=== PATIENT | male | born 1985 | race African-American/Black ===

== ENCOUNTER 2020-08-07 15:54 | Emergency (ER) | payer BC ==
[~2020-08-07] VITALS: Ht 175.3 cm; Wt 85.0 kg
[2020-08-07 16:00] VITALS: BP 117/80
[2020-08-07] MEDS ORDERED: ACETAMINOPHEN 325MG TABLET PO ONE (16:45)
== END 2020-08-07 16:45 | disposition home or self-care (01) ==
LOC: ER 15:54
DX: H66.91 Otitis media, unspecified, right ear (principal); I10 Essential (primary) hypertension
CPT/HCPCS: 99282

== ENCOUNTER → 2022-10-09 | Outpatient (CLI) | payer BC ==
[2022-10-09 10:10] LABS: CHLORIDE 104 mEq/L (98-107)
[2022-10-09 10:19] LABS: HDL CHOLESTEROL 69 mg/dL (40-59); LDL CHOLESTEROL 116 mg/dL (5-100)
[2022-10-12 13:10] LABS: MICROALBUMIN RANDOM URINE 6.7 ug/mL (Not Estab.)
[2022-10-13 04:08] LABS: *CREATININE RANDOM URINE 255.5 mg/dL (Not Estab.)
== END | disposition home or self-care (01) ==
LOC: LAB 09:27
PROVIDERS: ATTEND Family Medicine
DX: Z00.00 Encounter for general adult medical examination without abnormal findings (principal)
CPT/HCPCS: 36415; 80053; 80061; 82043; 82570; 83036

== ENCOUNTER → 2023-05-13 | Outpatient (CLI) | payer BC ==
[2023-05-13 10:15] LABS: BASOPHILS % 1.2 % (0.0-2.0); CHLORIDE 103 mEq/L (98-107); EOSINOPHILS % 2.1 % (0.0-5.0); HEMATOCRIT. 42.9 % (42.0-52.0); HEMOGLOBIN. 14.2 g/dL (14.0-18.0); INDEX HEMOLYSI 1 (1-3); INDEX ICTERIC 1 (1-4); INDEX LIPEMIC 1 (1-3); MEAN CORPUSCULAR HEMOGLOBIN 27.7 pg (28.0-32.0); MEAN CORPUSCULAR VOLUME 83.9 fL (80.0-94.0); MEAN PLATELET VOLUME 8.3 fl (7.4-10.4); MONOCYTES % 9.8 % (2.0-8.0); NEUTROPHILS % 41.9 % (40.0-76.0); PLATELET 232 x1000/uL (130-400); POTASSIUM 3.9 mEq/L (3.5-5.1); RED BLOOD CELL COUNT 5.12 mill/uL (4.7-6.1); RED CELL DISTRIBUTION WIDTH 14.1 % (11.6-14.6); SODIUM 136 mEq/L (136-145); WHITE BLOOD COUNT 2.3 x1000/uL (4.5-11.0)
[2023-05-13 10:17] LABS: CALCIUM 9.1 mg/dL (8.5-10.1)
[2023-05-13 10:32] LABS: ALANINE AMINOTRANSFERASE 36 IU/L (13-61); ALBUMIN 4.2 g/dL (3.4-5.0); ASPARTATE AMINOTRANSFERASE 18 IU/L (15-37); BILIRUBIN TOTAL 0.5 mg/dL (0.1-1.0); CARBON DIOXIDE 29 mEq/L (21-32); CHOLESTEROL 192 mg/dL (<200); CREATININE 1.1 mg/dL (0.6-1.3); GLUCOSE 98 mg/dL (70-105); HDL CHOLESTEROL 68 mg/dL (40-59); IRON 131 ug/dL (50-175); LDL CHOLESTEROL 113 mg/dL (5-100); PHOSPHORUS 3.2 mg/dL (2.5-4.9); PROTEIN TOTAL 7.6 g/dL (6.0-8.3); TOTAL IRON BINDING CAPACITY 304 ug/dL (250-450); TRIGLYCERIDE 93 mg/dL (0-150); UREA NITROGEN BLOOD 15 mg/dL (7-21)
[2023-05-13 11:24] LABS: ERYTHROCYTE SEDIMENTATION RATE 2 mm/hr (0-15)
[2023-05-13 15:21] LABS: C REACTIVE PROTEIN QUANT 0.5 mg/L (0.0-3.0)
[2023-05-13 16:49] LABS: HEPATITIS B SURFACE ANTIGEN NEGATIVE
[2023-05-13 17:15] LABS: HEPATITIS C VIR.AB 0.12 INDEXVAL (0.00-0.80)
[2023-05-13 17:16] LABS: HEPATITIS B CORE AB IGM NEGATIVE
[2023-05-13 17:17] LABS: HEPATITIS A AB IGM NEGATIVE (NEGATIVE)
[2023-05-14 09:07] LABS: *T3 UPTAKE 26 % (24-39); HELICOBACTER PYLORI AB IGG 0.3 (0.00-0.79)
[2023-05-16 13:07] LABS: THYROXINE BINDING GLOBULIN 16 ug/mL (13-39)
== END | disposition home or self-care (01) ==
LOC: LAB 09:30
PROVIDERS: ATTEND Internal Medicine
DX: Z13.29 Encounter for screening for other suspected endocrine disorder (principal); R73.09 Other abnormal glucose; R70.0 Elevated erythrocyte sedimentation rate; E58 Dietary calcium deficiency; R94.4 Abnormal results of kidney function studies; R79.9 Abnormal finding of blood chemistry, unspecified; R94.6 Abnormal results of thyroid function studies; E61.2 Magnesium deficiency; B96.81 Helicobacter pylori [H. pylori] as the cause of diseases classified elsewhere
CPT/HCPCS: 36415; 80053; 80061; 82626; 83036; 83540; 83550; 83735; 84100; 84442; 84443; 84479; 85025; 85651; 86140; 86677; 86705; 86709; 86803; 87340

== ENCOUNTER → 2023-08-05 | Outpatient (CLI) | payer BC | END | disposition home or self-care (01) | LOC: MRI 07:51 | PROVIDERS: ATTEND Internal Medicine | DX: M41.25 Other idiopathic scoliosis, thoracolumbar region (principal); M19.071 Primary osteoarthritis, right ankle and foot; M21.071 Valgus deformity, not elsewhere classified, right ankle; M72.2 Plantar fascial fibromatosis; M21.611 Bunion of right foot | CPT/HCPCS: 72146; 73630; 73718 ==

== ENCOUNTER → 2023-11-17 | Outpatient (CLI) | payer BC | END | disposition home or self-care (01) | LOC: RAD 14:31 | PROVIDERS: ATTEND Podiatrist Foot & Ankle Surgery | DX: M20.11 Hallux valgus (acquired), right foot (principal); M20.12 Hallux valgus (acquired), left foot; M19.071 Primary osteoarthritis, right ankle and foot; M79.671 Pain in right foot; M79.672 Pain in left foot | CPT/HCPCS: 73630; 73650 ==

== ENCOUNTER → 2023-12-28 | Outpatient (CLI) | payer BC ==
[2023-12-28 11:15] LABS: BASOPHILS % 0.9 % (0.0-2.0); EOSINOPHILS % 1.3 % (0.0-5.0); HEMATOCRIT. 40.1 % (42.0-52.0); HEMOGLOBIN. 13.4 g/dL (14.0-18.0); LYMPHOCYTES % 31.3 % (20.0-50.0); MEAN CORPUSCULAR HEMOGLOBIN 28.4 pg (28.0-32.0); MEAN CORPUSCULAR HGB CONC 33.5 g/dL (31.0-37.0); MEAN CORPUSCULAR VOLUME 84.8 fL (80.0-94.0); MONOCYTES % 9.7 % (2.0-8.0); NEUTROPHILS % 56.8 % (40.0-76.0); PLATELET 227 x1000/uL (130-400); RED BLOOD CELL COUNT 4.72 mill/uL (4.7-6.1); RED CELL DISTRIBUTION WIDTH 14.1 % (11.6-14.6)
[2023-12-28 12:00] LABS: ALANINE AMINOTRANSFERASE 24 IU/L (10-49); ALBUMIN 4.3 g/dL (3.2-4.8); ASPARTATE AMINOTRANSFERASE 21 IU/L (<34); BILIRUBIN TOTAL 0.4 mg/dL (0.1-1.0); CARBON DIOXIDE 30 mEq/L (21-32); CHLORIDE 105 mEq/L (98-107); GLUCOSE 88 mg/dL (70-105); PROTEIN TOTAL 6.7 g/dL (6.0-8.3); SODIUM 139 mEq/L (136-145); UREA NITROGEN BLOOD 11 mg/dL (9-23); URIC ACID 4.3 mg/dL (3.7-9.2)
== END | disposition home or self-care (01) ==
LOC: LAB 10:46
PROVIDERS: ATTEND Podiatrist Foot & Ankle Surgery
DX: M1A.0710 Idiopathic chronic gout, right ankle and foot, without tophus (tophi) (principal)
CPT/HCPCS: 36415; 80053; 84550; 85025

== ENCOUNTER → 2024-04-24 | Outpatient (CLI) | payer BC | END | disposition home or self-care (01) | LOC: MRI 09:05 | PROVIDERS: ATTEND Internal Medicine | DX: G43.909 Migraine, unspecified, not intractable, without status migrainosus (principal) | CPT/HCPCS: 70544; 70551; 70553 ==

== ENCOUNTER → 2024-09-10 | Outpatient (CLI) | payer BC ==
[2024-09-10 10:13] LABS: CLARITY URINE CLEAR (CLEAR); COLOR URINE YELLOW (YELLOW); GLUCOSE URINE NEGATIVE (NEGATIVE); KETONES URINE NEGATIVE (NEGATIVE); LEUKOCYTE ESTERASE URINE NEGATIVE (NEGATIVE); NITRITE URINE NEGATIVE (NEGATIVE); OCCULT BLOOD URINE NEGATIVE (NEGATIVE); PH URINE 5.5 (4.5-8.0); PROTEIN URINE NEGATIVE (NEGATIVE); SPECIFIC GRAVITY URINE 1.019 (1.005-1.030); UROBILINOGEN URINE 0.2 E.U./dL (0.2-1.0)
[2024-09-10 10:22] LABS: CHLORIDE 104 mEq/L (98-107); SODIUM 140 mEq/L (136-145)
[2024-09-10 10:23] LABS: CALCIUM 10.2 mg/dL (8.7-10.4); CARBON DIOXIDE 28 mEq/L (21-32)
[2024-09-10 10:28] LABS: CREATININE 1.1 mg/dL (0.6-1.3); GLUCOSE 98 mg/dL (70-105); IRON 107 ug/dL (65-175); URIC ACID 6.8 mg/dL (3.7-9.2)
[2024-09-10 10:29] LABS: LDL CHOLESTEROL 106 mg/dL (5-100); TRIGLYCERIDE 122 mg/dL (0-150); UREA NITROGEN BLOOD 14 mg/dL (9-23)
[2024-09-10 10:30] LABS: ALANINE AMINOTRANSFERASE 38 IU/L (10-49); ALBUMIN 4.5 g/dL (3.2-4.8); ASPARTATE AMINOTRANSFERASE 28 IU/L (<34); BASOPHILS % 1.1 % (0.0-2.0); BILIRUBIN DIRECT 0.1 mg/dL (<=3.0); BILIRUBIN TOTAL 0.5 mg/dL (0.1-1.0); C REACTIVE PROTEIN QUANT 0.8 mg/L (0.0-3.0); CHOLESTEROL 184 mg/dL (<200); EOSINOPHILS % 2.5 % (0.0-5.0); HDL CHOLESTEROL 52 mg/dL (>55); HEMATOCRIT. 42.9 % (42.0-52.0); HEMOGLOBIN. 14.2 g/dL (14.0-18.0); LYMPHOCYTES % 40.8 % (20.0-50.0); MEAN CORPUSCULAR HEMOGLOBIN 28.3 pg (28.0-32.0); MEAN CORPUSCULAR HGB CONC 33.1 g/dL (31.0-37.0); MEAN CORPUSCULAR VOLUME 85.4 fL (80.0-94.0); MEAN PLATELET VOLUME 8.3 fl (7.4-10.4); MONOCYTES % 8.9 % (2.0-8.0); NEUTROPHILS % 46.7 % (40.0-76.0); PHOSPHORUS 3.7 mg/dL (2.5-4.9); PLATELET 241 x1000/uL (130-400); RED BLOOD CELL COUNT 5.03 mill/uL (4.7-6.1); RED CELL DISTRIBUTION WIDTH 14.2 % (11.6-14.6); WHITE BLOOD COUNT 2.6 x1000/uL (4.5-11.0)
[2024-09-10 10:31] LABS: TOTAL IRON BINDING CAPACITY 294 ug/dl (250-425)
[2024-09-10 10:32] LABS: THYROID STIMULATING HORMONE 1.48 uIU/mL (0.55-4.78)
[2024-09-10 11:24] LABS: HEPATITIS B SURFACE AB 60.2 mIU/mL (<10)
[2024-09-10 11:57] LABS: HEPATITIS B CORE AB IGM NEGATIVE (Negative)
[2024-09-10 12:15] LABS: ERYTHROCYTE SEDIMENTATION RATE 3 mm/hr (0-15)
[2024-09-11 08:09] LABS: *T3 UPTAKE 27 % (24-39); FOLICLE STIMULATING HORMONE 6.4 mIU/mL (1.5-12.4); HEPATITIS A ANTIBODY TOTAL Negative (Negative); LUTEINIZING HORMONE 6.2 mIU/mL (1.7-8.6); PROGESTERONE 0.3 ng/mL (0.0-0.5); PROSTATE SPECIFIC AG TOTAL 0.9 ng/mL (0.0-4.0); TRANSFERRIN 236 mg/dL (177-329); VITAMIN D 25-OH 29.6 ng/mL (30.0-100.0)
== END | disposition home or self-care (01) ==
LOC: LAB 09:29
PROVIDERS: ATTEND Internal Medicine
DX: Z00.00 Encounter for general adult medical examination without abnormal findings (principal)
CPT/HCPCS: 36415; 80053; 80061; 80076; 81003; 82024; 82306; 82533; 82670; 83001; 83002; 83036; 83540; 83550; 84100; 84144; 84153; 84403; 84443; 84466; 84479; 84550; 85025; 85651; 86140; 86705; 86706; 86708

== ENCOUNTER → 2025-04-12 | Outpatient (CLI) | payer BC | END | disposition home or self-care (01) | LOC: RAD 07:22 | PROVIDERS: ATTEND Podiatrist Foot & Ankle Surgery | DX: M19.071 Primary osteoarthritis, right ankle and foot (principal); M20.11 Hallux valgus (acquired), right foot; M25.871 Other specified joint disorders, right ankle and foot; M79.671 Pain in right foot | CPT/HCPCS: 73630 ==

== ENCOUNTER → 2025-07-02 | Outpatient (CLI) | payer BC ==
[2025-07-02 09:41] LABS: CLARITY URINE CLEAR (CLEAR); COLOR URINE YELLOW (YELLOW); GLUCOSE URINE NEGATIVE (NEGATIVE); KETONES URINE TRACE (NEGATIVE); LEUKOCYTE ESTERASE URINE NEGATIVE (NEGATIVE); NITRITE URINE NEGATIVE (NEGATIVE); OCCULT BLOOD URINE NEGATIVE (NEGATIVE); PH URINE 6.5 (4.5-8.0); PROTEIN URINE NEGATIVE (NEGATIVE); SPECIFIC GRAVITY URINE 1.021 (1.005-1.030); UROBILINOGEN URINE 0.2 E.U./dL (0.2-1.0)
[2025-07-02 09:47] LABS: BASOPHILS % 1.0 % (0.0-2.0); EOSINOPHILS % 2.3 % (0.0-5.0); HEMATOCRIT. 40.9 % (42.0-52.0); HEMOGLOBIN. 13.4 g/dL (14.0-18.0); LYMPHOCYTES % 35.5 % (20.0-50.0); MEAN PLATELET VOLUME 7.9 fl (7.4-10.4); MONOCYTES % 8.2 % (2.0-8.0); NEUTROPHILS % 53.0 % (40.0-76.0); PLATELET 256 x1000/uL (130-400); RED BLOOD CELL COUNT 4.93 mill/uL (4.7-6.1); RED CELL DISTRIBUTION WIDTH 14.4 % (11.6-14.6)
[2025-07-02 09:49] LABS: INR 0.9
[2025-07-02 10:06] LABS: CREATININE 1.1 mg/dL (0.6-1.3); TRIGLYCERIDE 125 mg/dL (0-150); UREA NITROGEN BLOOD 10 mg/dL (9-23)
[2025-07-02 10:07] LABS: LDL CHOLESTEROL 119 mg/dL (5-100)
[2025-07-02 10:08] LABS: ASPARTATE AMINOTRANSFERASE 23 IU/L (<34); BILIRUBIN TOTAL 0.4 mg/dL (0.1-1.0); PHOSPHORUS 3.5 mg/dL (2.5-4.9); PROTEIN TOTAL 7.2 g/dL (6.0-8.3)
[2025-07-02 10:12] LABS: T4 FREE 1.21 ng/dL (0.89-1.76)
[2025-07-02 11:01] LABS: ERYTHROCYTE SEDIMENTATION RATE 2 mm/hr (0-15)
[2025-07-03 05:09] LABS: PROSTATE SPECIFIC AG TOTAL 0.9 ng/mL (0.0-4.0); VITAMIN D 25-OH 33.3 ng/mL (30.0-100.0)
== END | disposition home or self-care (01) ==
LOC: RAD 08:57
DX: Z01.818 Encounter for other preprocedural examination (principal); Z00.00 Encounter for general adult medical examination without abnormal findings; R94.31 Abnormal electrocardiogram [ECG] [EKG]
CPT/HCPCS: 36415; 71045; 80053; 80061; 81003; 82306; 83036; 83735; 84100; 84153; 84403; 84439; 84550; 85025; 85651; 93005

== ENCOUNTER → 2025-07-17 | Day surgery (SDC) | payer BC ==
[~2025-07-17] VITALS: Ht 175.3 cm; Wt 88.5 kg
[~2025-07-17] MED LIST: ACETAMINOPHEN 1000MG/100ML 100 ML IV ONE; BUPIVACAINE HCL/PF 0.5% (5MG/ML) 10ML ONE; CEFAZOLIN SODIUM 1000MG/VIAL ONE; DEXAMETHASONE 4MG/ML 1ML VIAL ONE; EPHEDRINE SULFATE 50MG/ML VIAL ONE; FAMOTIDINE 20MG/2ML VIAL IV ONE; FENTANYL CITRATE/PF 50MCG/ML 2ML VIAL ONE; HYDRALAZINE 20MG/ML VIAL IV PRN; HYDROMORPHONE HCL/PF 1MG/ML INJ IV PRN; HYDROMORPHONE HCL/PF 1MG/ML INJ ONE; KETOROLAC 30MG/ML VIAL ONE; LABETALOL 5MG/ML 4ML INJ IV PRN; LIDOCAINE HCL 1% 10 MG/ML 10ML VIAL ONE; MIDAZOLAM HCL 2 MG/2 ML VIAL ONE; OLME-24 PO; ONDANSETRON HCL 4MG/2ML INJ IV PRN; ONDANSETRON HCL 4MG/2ML INJ ONE; PHENYLEPHRINE HCL 10MG/ML 1ML IV ONE; PROPOFOL 200MG/20ML VIAL IV ONE; SODIUM CHLORIDE 0.9% 1,000 ML IV SCH; TRIAMCINOLONE ACETONIDE 40MG/ML 1ML VIAL ONE; VANCOMYCIN HCL 1GM VIAL ONE
== END | disposition home or self-care (01) ==
LOC: OR 06:39
PROVIDERS: ATTEND Podiatrist Foot & Ankle Surgery
DX: M20.11 Hallux valgus (acquired), right foot (principal); I10 Essential (primary) hypertension; E11.9 Type 2 diabetes mellitus without complications; Z79.899 Other long term (current) drug therapy; Z98.890 Other specified postprocedural states
CPT/HCPCS: 28296; 97161; 73630; 97116; 82962; 88311; 88304; J1885; J3010; J0665; J0690; J1100; J3490; J1308; J2003; J2250; J2405; J2371; J2704; J3301; J3373; J1171; C1713; J0131

== ENCOUNTER → 2025-08-28 | Outpatient (CLI) | payer BC ==
[~2025-08-28] MED LIST changes: -ACETAMINOPHEN 1000MG/100ML 100 ML IV ONE; -BUPIVACAINE HCL/PF 0.5% (5MG/ML) 10ML ONE; -CEFAZOLIN SODIUM 1000MG/VIAL ONE; -DEXAMETHASONE 4MG/ML 1ML VIAL ONE; -EPHEDRINE SULFATE 50MG/ML VIAL ONE; -FAMOTIDINE 20MG/2ML VIAL IV ONE; -FENTANYL CITRATE/PF 50MCG/ML 2ML VIAL ONE; -HYDRALAZINE 20MG/ML VIAL IV PRN; -HYDROMORPHONE HCL/PF 1MG/ML INJ IV PRN; -HYDROMORPHONE HCL/PF 1MG/ML INJ ONE; -KETOROLAC 30MG/ML VIAL ONE; -LABETALOL 5MG/ML 4ML INJ IV PRN; -LIDOCAINE HCL 1% 10 MG/ML 10ML VIAL ONE; -MIDAZOLAM HCL 2 MG/2 ML VIAL ONE; -ONDANSETRON HCL 4MG/2ML INJ IV PRN; -ONDANSETRON HCL 4MG/2ML INJ ONE; -PHENYLEPHRINE HCL 10MG/ML 1ML IV ONE; -PROPOFOL 200MG/20ML VIAL IV ONE; -SODIUM CHLORIDE 0.9% 1,000 ML IV SCH; -TRIAMCINOLONE ACETONIDE 40MG/ML 1ML VIAL ONE; -VANCOMYCIN HCL 1GM VIAL ONE
== END | disposition home or self-care (01) ==
LOC: RAD 10:46
PROVIDERS: ATTEND Podiatrist Foot & Ankle Surgery
DX: M19.071 Primary osteoarthritis, right ankle and foot (principal); M21.611 Bunion of right foot; M20.11 Hallux valgus (acquired), right foot
CPT/HCPCS: 73630